=== PATIENT | female | born 1960 | race Two or more races ===

== ENCOUNTER 2020-04-25 13:33 | Outpatient (CLI) | payer OTHER | END 2020-04-25 17:43 | disposition home or self-care (01) | LOC: OFIC 805 13:33 | PROVIDERS: ATTEND Otolaryngology | DX: E05.00 Thyrotoxicosis with diffuse goiter without thyrotoxic crisis or storm (principal); J39.2 Other diseases of pharynx; R09.89 Other specified symptoms and signs involving the circulatory and respiratory systems ==

== ENCOUNTER 2020-05-12 10:30 | Inpatient (IN) | payer OTHER ==
[~2020-05-12] VITALS: Ht 160 cm; Wt 66.7 kg
[2020-05-12] MEDS ORDERED: [UNRECOGNIZED DRUG - OTHER] PO (12:02)
[2020-05-12] MEDS ORDERED: TAPAZOLE5 M1 PO (12:02)
[2020-05-12] MEDS ORDERED: IODINE (12:03)
[2020-05-15] MEDS ORDERED: KELP150 MC1 (08:25)
== END 2020-05-16 12:26 | disposition home or self-care (01) | DRG 627 ==
LOC: O/R 05-15 05:29 → SURH 05-15 05:29
PROVIDERS: ADMIT Surgery; ATTEND Surgery
PROC: 0GT Endocrine System, Resection (ICD-10-PCS; principal; 2020-05-15 09:30)
DX: E05.00 Thyrotoxicosis with diffuse goiter without thyrotoxic crisis or storm (principal)